=== PATIENT | female | born 2000 ===

== ENCOUNTER 2021-04-11 15:30 | Inpatient (IN) | payer OTHER ==
[~2021-04-11] VITALS: Ht 162.6 cm; Wt 78.0 kg
[2021-04-25] MEDS ORDERED: PRENATAL TABLE1 EAC1 (10:34)
== END 2021-04-27 13:17 | disposition home or self-care (01) | DRG 807 ==
LOC: LDR 04-25 08:24 → OB/GYN 04-25 08:24 → LDR 04-25 16:12 → OB/GYN 04-26 00:32 → O/R 05-01 15:30
PROVIDERS: ADMIT Obstetrics & Gynecology; ATTEND Obstetrics & Gynecology
PROC: 10E0XZZ Delivery of Products of Conception, External Approach (ICD-10-PCS; principal; 2021-04-25)
PROC: 10907ZC Drainage of Amniotic Fluid, Therapeutic from Products of Conception, Via Natural or Artificial Opening (ICD-10-PCS; 2021-04-25)
PROC: 4A1HXFZ Monitoring of Products of Conception, Cardiac Rhythm, External Approach (ICD-10-PCS; 2021-04-25)
DX: O80 Encounter for full-term uncomplicated delivery (principal); Z37.0 Single live birth; Z3A.38 38 weeks gestation of pregnancy; Z20.822 Contact with and (suspected) exposure to COVID-19